=== PATIENT | male | born 1965 | race Caucasian/White ===

== ENCOUNTER 2017-03-21 13:11 | Inpatient (IN) | payer MEDICAID, OTHER ==
[~2017-03-21] VITALS: Ht 175.3 cm; Wt 78.2 kg
[~2017-03-21 13:11] MED LIST: ACET325T14 PO; AMLO2.5T2 PO; AMLO5TAB2 PO; ASPI-496 PO; ATEN25TA PO; ATEN50TA41 PO; CLON0.5T PO; CLOP75TA52 PO; ENAL2.5T PO; ENAL20TA PO; ENAL20TA68 PO; FLUO20SO PO; GABA300C10 PO; HYDR-3307 PO; HYDR12.53 PO; HYDR25TA6 PO; IBUP-1223 PO; ISOS30TA21 PO; ISOS30TA8 PO; LOPRESSOR PO; LORA-446 PO; METH500T97 PO; METO-99 PO; METO25TA35 PO; NITR0.4T28 SL; OLAN2.5T10 PO; OLAN5TAB9 PO; OMEP-110 PO; PANT40TA3 PO; PRAS10TA4 PO; SERT50TA5 PO; SIMV10TA3 PO; SIMV20TA3 PO; TAMS0.4C2 PO; TEMA15CA6 PO; TICA90TA PO
[2017-03-21] MEDS ORDERED: ONDANSETRON 2MG/ML, 2ML IVPush ONE (14:00)
[2017-03-21] MEDS ORDERED: SODIUM CHLORIDE FLUSH 10ML SYR IVF ONE (14:00)
[2017-03-21] MEDS ORDERED: LORazepam 2 MG/ML, 1ML IVPush ONE (14:00)
[2017-03-21] MEDS ORDERED: ASPIRIN 81 MG TABLET CHEW PO ONE (14:00)
[2017-03-21] MEDS ORDERED: MORPHINE SULFATE 4 MG/ML, 1ML IVPush ONE (14:00)
[2017-03-21] MEDS ORDERED: LABETALOL 5MG/ML, 20ML IVPush ONE (14:00)
[2017-03-21] MEDS ORDERED: NITROGLYCERIN SINGLE TAB 0.4 MG SL ONE (14:05)
[2017-03-21] MEDS ORDERED: morphine SULFATE 10 MG/ML, 1ML ONE (14:06)
[2017-03-21] MEDS ORDERED: ONDANSETRON 2MG/ML, 2ML ONE (14:06)
[2017-03-21] MEDS: NITROGLYCERIN SINGLE TAB 0.4 MG SL PRN ×3 (14:15→14:25)
[2017-03-21 14:21] LABS: ASPARTATE AMINO TRANSFERASE 53 U/L (15-37); BLOOD UREA NITROGEN 19 mg/dL (7-18)
[2017-03-21 14:22] LABS: HEMATOCRIT 46.4 % (39.2-51.8); HEMOGLOBIN 15.8 g/dL (13.7-18.0); WHITE BLOOD COUNT 6.1 x10^3/uL (3.4-10)
[2017-03-21] MEDS ORDERED: LABETALOL 5MG/ML, 20ML ONE (14:23)
[2017-03-21 14:29] LABS: IS PT STATUS REG ER OR PRE ER? YES
[2017-03-21 14:31] LABS: DAU SCREEN DISCLAIMER
[2017-03-21] MEDS ORDERED: LORazepam 2 MG/ML, 1ML ONE (15:24)
[2017-03-21] MEDS ORDERED: ONDANSETRON 2MG/ML, 2ML IVPush PRN (16:00)
[2017-03-21] MEDS ORDERED: NITROGLYCERIN 0.4 MG BOTTLE (25 TABS) SL SCH (16:00)
[2017-03-21] MEDS ORDERED: TEMAZEPAM 15 MG CAPSULE PO PRN (16:00)
[2017-03-21] MEDS ORDERED: ACETAMINOPHEN 325 MG TABLET PO PRN (16:00)
[2017-03-21] MEDS ORDERED: ENOXAPARIN 40 MG/0.4 ML ONE (16:05)
[2017-03-21] MEDS ORDERED: ACETAMINOPHEN 325 MG TABLET ONE (16:12)
[2017-03-21] MEDS: ENOXAPARIN 40 MG/0.4 ML SQ SCH (16:14)
[2017-03-21] MEDS ORDERED: GADOBUTROL 7.5 MMOL/7.5 ML PFS ONE (16:56)
[2017-03-21] MEDS ORDERED: hydrALAzine 20 MG/ML, 1ML ONE (17:21)
[2017-03-21] MEDS: hydrALAzine 20 MG/ML, 1ML IVPush PRN (17:25)
[2017-03-21] MEDS: morphine SULFATE 10 MG/ML, 1ML IVPush PRN (18:38)
[2017-03-21 19:12] VITALS: BP 156/108
[2017-03-21] MEDS: LORazepam 1MG TABLET PO PRN (20:08)
[2017-03-21] MEDS: OMEPRAZOLE 20 MG CAPSULE.DR PO SCH (20:09)
[2017-03-21] MEDS: ENALAPRIL 10 MG TABLET PO SCH (20:09)
[2017-03-21] MEDS: SIMVASTATIN 20 MG TABLET PO SCH (20:09)
[2017-03-21] MEDS: FLUOXETINE 20 MG CAPSULE PO SCH (20:09)
[2017-03-21] MEDS: OLANZAPINE 5 MG TABLET PO SCH (20:09)
[2017-03-21 22:36] LABS: IS PT STATUS REG ER OR PRE ER? NO
[2017-03-22 00:37] VITALS: BP 120/73
[2017-03-22 02:29] VITALS: BP 108/71
[2017-03-22 05:32] LABS: BLOOD UREA NITROGEN 29 mg/dL (7-18)
[2017-03-22 05:51] LABS: IS PT STATUS REG ER OR PRE ER? NO
[2017-03-22] MEDS ORDERED: REGADENOSON 0.4 MG/5 ML SYRINGE ONE (08:19)
[2017-03-22] MEDS ORDERED: METOPROLOL TARTRATE PO SCH (09:00)
[2017-03-22 10:25] VITALS: BP 127/71
[2017-03-22] MEDS: ISOSORBIDE MONONITRATE ER 30 MG TABLET PO SCH (11:24)
[2017-03-22] MEDS: METOPROLOL TARTRATE 100 MG TABLET PO SCH (11:24)
[2017-03-22] MEDS: ASPIRIN 81 MG TABLET EC PO SCH (11:24)
[2017-03-22] MEDS: ENALAPRIL 10 MG TABLET PO SCH ×2 (11:25→20:41)
[2017-03-22] MEDS: HYDROcodone/APAP 5/325 TABLET PO PRN ×2 (11:25→15:58)
[2017-03-22] MEDS: CLOPIDOGREL 75 MG TABLET PO SCH (11:25)
[2017-03-22] MEDS: LORazepam 1MG TABLET PO PRN ×2 (11:25→15:50)
[2017-03-22 13:00] VITALS: BP 152/79
[2017-03-22] MEDS ORDERED: POTASSIUM CHLORIDE 20 MEQ TAB.ER.PRT PO ONE (13:00)
[2017-03-22] MEDS: OMEPRAZOLE 20 MG CAPSULE.DR PO SCH ×3 (15:50→20:42)
[2017-03-22] MEDS: ENOXAPARIN 40 MG/0.4 ML SQ SCH (15:50)
[2017-03-22 19:09] VITALS: BP 128/84
[2017-03-22] MEDS ORDERED: HALOPERIDOL 5 MG/ML IM PRN (19:30)
[2017-03-22] MEDS ORDERED: LORazepam 2 MG/ML, 1ML IVPush PRN (19:30)
[2017-03-22] MEDS: FLUOXETINE 20 MG CAPSULE PO SCH (20:41)
[2017-03-22] MEDS: FOLIC ACID 1 MG TABLET PO SCH (20:42)
[2017-03-22] MEDS: SIMVASTATIN 20 MG TABLET PO SCH (20:42)
[2017-03-22] MEDS: OLANZAPINE 5 MG TABLET PO SCH (20:43)
[2017-03-22] MEDS: morphine SULFATE 10 MG/ML, 1ML IVPush PRN (21:32)
[2017-03-23 03:10] VITALS: BP 130/78
[2017-03-23 07:30] VITALS: BP 168/108
[2017-03-23] MEDS: LORazepam 1MG TABLET PO PRN ×3 (07:46→16:50)
[2017-03-23] MEDS: FOLIC ACID 1 MG TABLET PO SCH (07:48)
[2017-03-23] MEDS: ISOSORBIDE MONONITRATE ER 30 MG TABLET PO SCH (07:48)
[2017-03-23] MEDS: ASPIRIN 81 MG TABLET EC PO SCH (07:49)
[2017-03-23] MEDS: METOPROLOL TARTRATE 100 MG TABLET PO SCH (07:49)
[2017-03-23] MEDS: THIAMINE 100MG TABLET PO SCH (07:49)
[2017-03-23] MEDS: CLOPIDOGREL 75 MG TABLET PO SCH (07:49)
[2017-03-23] MEDS: ENALAPRIL 10 MG TABLET PO SCH ×2 (07:49→19:53)
[2017-03-23] MEDS: OMEPRAZOLE 20 MG CAPSULE.DR PO SCH ×2 (07:50→16:50)
[2017-03-23] MEDS: HYDROcodone/APAP 5/325 TABLET PO PRN ×3 (10:23→21:11)
[2017-03-23 13:57] VITALS: BP 120/87
[2017-03-23 15:36] LABS: OCCBLD OBC PASS
[2017-03-23] MEDS ORDERED: POTASSIUM CHLORIDE 20 MEQ TAB.ER.PRT PO ONE (16:30)
[2017-03-23] MEDS: CHLORDIAZEPOXIDE 25 MG CAPSULE PO SCH ×2 (19:05→19:52)
[2017-03-23 19:30] VITALS: BP_SYST 150; BP_SYST 157; BP_DIAS 104; BP_DIAS 112
[2017-03-23] MEDS: OLANZAPINE 5 MG TABLET PO SCH (19:51)
[2017-03-23] MEDS: METOPROLOL TARTRATE 25 MG TABLET PO SCH (19:53)
[2017-03-23] MEDS: BACLOFEN 10 MG TABLET PO SCH (19:53)
[2017-03-23] MEDS: SIMVASTATIN 20 MG TABLET PO SCH (19:53)
[2017-03-23] MEDS: FLUOXETINE 20 MG CAPSULE PO SCH (19:53)
[2017-03-24 04:20] VITALS: BP 146/87
[2017-03-24 05:00] LABS: BLOOD UREA NITROGEN 35 mg/dL (7-18)
[2017-03-24] MEDS: CHLORDIAZEPOXIDE 25 MG CAPSULE PO SCH ×4 (06:14→20:20)
[2017-03-24] MEDS: LORazepam 1MG TABLET PO PRN ×2 (07:28→15:31)
[2017-03-24] MEDS: METOPROLOL TARTRATE 25 MG TABLET PO SCH ×2 (07:29→20:19)
[2017-03-24] MEDS: ASPIRIN 81 MG TABLET EC PO SCH (07:29)
[2017-03-24] MEDS: OMEPRAZOLE 20 MG CAPSULE.DR PO SCH ×2 (07:29→15:11)
[2017-03-24] MEDS: ISOSORBIDE MONONITRATE ER 30 MG TABLET PO SCH (07:29)
[2017-03-24] MEDS: BACLOFEN 10 MG TABLET PO SCH ×2 (07:29→20:20)
[2017-03-24] MEDS: FOLIC ACID 1 MG TABLET PO SCH (07:29)
[2017-03-24] MEDS: THIAMINE 100MG TABLET PO SCH (07:30)
[2017-03-24] MEDS: CLOPIDOGREL 75 MG TABLET PO SCH (07:30)
[2017-03-24] MEDS: ENALAPRIL 10 MG TABLET PO SCH ×2 (07:30→20:20)
[2017-03-24 08:00] VITALS: BP 130/74
[2017-03-24] MEDS: KETOROLAC 30 MG/1 ML IVPush SCH ×3 (09:32→20:19)
[2017-03-24] MEDS: HYDROcodone/APAP 5/325 TABLET PO PRN ×3 (12:00→22:15)
[2017-03-24] MEDS: VALPROATE SODIUM 500 MG in SODIUM CHLORIDE 0.9% 100 ML IV SCH ×2 (13:18→20:22)
[2017-03-24 14:15] VITALS: BP 129/87
[2017-03-24 19:48] VITALS: BP 130/86
[2017-03-24] MEDS: FLUOXETINE 20 MG CAPSULE PO SCH (20:20)
[2017-03-24] MEDS: OLANZAPINE 5 MG TABLET PO SCH (20:20)
[2017-03-24] MEDS: SIMVASTATIN 20 MG TABLET PO SCH (20:20)
[2017-03-25 01:51] VITALS: BP 132/88
[2017-03-25] MEDS: HYDROcodone/APAP 5/325 TABLET PO PRN ×2 (02:58→14:41)
[2017-03-25] MEDS: KETOROLAC 30 MG/1 ML IVPush SCH ×4 (02:58→20:54)
[2017-03-25] MEDS: CHLORDIAZEPOXIDE 25 MG CAPSULE PO SCH ×4 (05:11→22:43)
[2017-03-25 05:52] LABS: BLOOD UREA NITROGEN 42 mg/dL (7-18)
[2017-03-25 07:56] VITALS: BP 136/88
[2017-03-25] MEDS: ENALAPRIL 10 MG TABLET PO SCH ×2 (08:31→20:51)
[2017-03-25] MEDS: FOLIC ACID 1 MG TABLET PO SCH (08:31)
[2017-03-25] MEDS: THIAMINE 100MG TABLET PO SCH (08:31)
[2017-03-25] MEDS: BACLOFEN 10 MG TABLET PO SCH ×2 (08:31→20:51)
[2017-03-25] MEDS: ISOSORBIDE MONONITRATE ER 30 MG TABLET PO SCH (08:32)
[2017-03-25] MEDS: METOPROLOL TARTRATE 25 MG TABLET PO SCH ×2 (08:32→20:51)
[2017-03-25] MEDS: CLOPIDOGREL 75 MG TABLET PO SCH (08:32)
[2017-03-25] MEDS: OMEPRAZOLE 20 MG CAPSULE.DR PO SCH ×2 (08:32→16:43)
[2017-03-25] MEDS: ASPIRIN 81 MG TABLET EC PO SCH (08:33)
[2017-03-25] MEDS: VALPROATE SODIUM 500 MG in SODIUM CHLORIDE 0.9% 100 ML IV SCH ×2 (08:33→20:54)
[2017-03-25] MEDS: BUTALB/APAP/CAFFEINE 50MG/325MG/40MG PO PRN ×2 (11:28→20:50)
[2017-03-25 14:40] VITALS: BP 145/91
[2017-03-25 19:06] VITALS: BP 172/110
[2017-03-25 20:48] VITALS: BP 163/105
[2017-03-25] MEDS: OLANZAPINE 5 MG TABLET PO SCH (20:50)
[2017-03-25] MEDS: FLUOXETINE 20 MG CAPSULE PO SCH (20:50)
[2017-03-25] MEDS: SIMVASTATIN 20 MG TABLET PO SCH (20:50)
[2017-03-25 22:40] VITALS: BP_SYST 166; BP_SYST 180; BP_DIAS 113; BP_DIAS 98
[2017-03-26] MEDS: KETOROLAC 30 MG/1 ML IVPush SCH ×4 (02:47→21:52)
[2017-03-26 03:03] VITALS: BP 137/85
[2017-03-26] MEDS: BUTALB/APAP/CAFFEINE 50MG/325MG/40MG PO PRN ×4 (03:12→21:53)
[2017-03-26] MEDS: CHLORDIAZEPOXIDE 25 MG CAPSULE PO SCH ×4 (06:10→21:52)
[2017-03-26 08:26] VITALS: BP 175/115
[2017-03-26] MEDS: ASPIRIN 81 MG TABLET EC PO SCH (08:49)
[2017-03-26] MEDS: BACLOFEN 10 MG TABLET PO SCH ×2 (08:49→21:52)
[2017-03-26] MEDS: METOPROLOL TARTRATE 25 MG TABLET PO SCH ×2 (08:49→21:52)
[2017-03-26] MEDS: ISOSORBIDE MONONITRATE ER 30 MG TABLET PO SCH (08:50)
[2017-03-26] MEDS: OMEPRAZOLE 20 MG CAPSULE.DR PO SCH ×2 (08:50→16:36)
[2017-03-26] MEDS: ENALAPRIL 10 MG TABLET PO SCH ×2 (08:50→21:52)
[2017-03-26] MEDS: THIAMINE 100MG TABLET PO SCH (08:50)
[2017-03-26] MEDS: CLOPIDOGREL 75 MG TABLET PO SCH (08:50)
[2017-03-26] MEDS: FOLIC ACID 1 MG TABLET PO SCH (08:50)
[2017-03-26] MEDS: hydrALAzine 20 MG/ML, 1ML IVPush PRN (08:50)
[2017-03-26 10:00] VITALS: BP 156/98
[2017-03-26] MEDS: VALPROATE SODIUM 500 MG in SODIUM CHLORIDE 0.9% 100 ML IV SCH ×2 (11:06→21:55)
[2017-03-26 14:30] VITALS: BP 157/90
[2017-03-26] MEDS: DIPHENHYDRAMINE 50 MG/ML, 1ML IVPush SCH ×2 (14:50→21:54)
[2017-03-26 19:15] VITALS: BP 135/89
[2017-03-26] MEDS ORDERED: HALOPERIDOL 5 MG/ML IM PRN (20:30)
[2017-03-26] MEDS ORDERED: ONDANSETRON 2MG/ML, 2ML IVPush PRN (20:30)
[2017-03-26] MEDS ORDERED: ACETAMINOPHEN 325 MG TABLET PO PRN (20:30)
[2017-03-26] MEDS ORDERED: NITROGLYCERIN 0.4 MG BOTTLE (25 TABS) SL SCH (20:30)
[2017-03-26] MEDS: FLUOXETINE 20 MG CAPSULE PO SCH (21:52)
[2017-03-26] MEDS: SIMVASTATIN 20 MG TABLET PO SCH (21:53)
[2017-03-26] MEDS: OLANZAPINE 5 MG TABLET PO SCH (21:53)
[2017-03-26] MEDS: HYDROcodone/APAP 5/325 TABLET PO PRN (23:27)
[2017-03-27] MEDS: BUTALB/APAP/CAFFEINE 50MG/325MG/40MG PO PRN ×5 (01:57→22:09)
[2017-03-27 02:00] VITALS: BP 154/96
[2017-03-27] MEDS: DIPHENHYDRAMINE 50 MG/ML, 1ML IVPush SCH ×4 (03:30→20:28)
[2017-03-27] MEDS: KETOROLAC 30 MG/1 ML IVPush SCH ×4 (03:31→20:28)
[2017-03-27] MEDS: CHLORDIAZEPOXIDE 25 MG CAPSULE PO SCH ×4 (06:02→20:28)
[2017-03-27 06:15] VITALS: BP 157/103
[2017-03-27 09:45] VITALS: BP 148/88
[2017-03-27] MEDS: VALPROATE SODIUM 500 MG in SODIUM CHLORIDE 0.9% 100 ML IV SCH (09:48)
[2017-03-27] MEDS: THIAMINE 100MG TABLET PO SCH (09:51)
[2017-03-27] MEDS: ENALAPRIL 10 MG TABLET PO SCH ×2 (09:51→20:28)
[2017-03-27] MEDS: CLOPIDOGREL 75 MG TABLET PO SCH (09:51)
[2017-03-27] MEDS: BACLOFEN 10 MG TABLET PO SCH ×2 (09:51→20:27)
[2017-03-27] MEDS: FOLIC ACID 1 MG TABLET PO SCH (09:51)
[2017-03-27] MEDS: ASPIRIN 81 MG TABLET EC PO SCH (09:52)
[2017-03-27] MEDS: ISOSORBIDE MONONITRATE ER 30 MG TABLET PO SCH (09:52)
[2017-03-27] MEDS: OMEPRAZOLE 20 MG CAPSULE.DR PO SCH ×2 (09:52→17:22)
[2017-03-27] MEDS: METOPROLOL TARTRATE 25 MG TABLET PO SCH ×2 (09:52→20:28)
[2017-03-27 13:02] VITALS: BP 130/69
[2017-03-27 20:24] VITALS: BP 148/82
[2017-03-27] MEDS: OLANZAPINE 5 MG TABLET PO SCH (20:27)
[2017-03-27] MEDS: SIMVASTATIN 20 MG TABLET PO SCH (20:27)
[2017-03-27] MEDS: FLUOXETINE 20 MG CAPSULE PO SCH (20:28)
[2017-03-27] MEDS: TOPIRAMATE 25 MG TABLET PO SCH (20:28)
[2017-03-28] MEDS: KETOROLAC 30 MG/1 ML IVPush SCH ×2 (03:00→08:48)
[2017-03-28] MEDS: DIPHENHYDRAMINE 50 MG/ML, 1ML IVPush SCH ×2 (03:00→08:48)
[2017-03-28 03:30] VITALS: BP 115/72
[2017-03-28] MEDS: BUTALB/APAP/CAFFEINE 50MG/325MG/40MG PO PRN ×2 (03:39→09:51)
[2017-03-28] MEDS: CHLORDIAZEPOXIDE 25 MG CAPSULE PO SCH (06:00)
[2017-03-28] MEDS ORDERED: TOPI25TA32 PO (06:45)
[2017-03-28] MEDS ORDERED: THIA100T6 PO (06:45)
[2017-03-28] MEDS ORDERED: FOLI-17 PO (06:45)
[2017-03-28] MEDS ORDERED: BUTA-177 PO (06:45)
[2017-03-28] MEDS ORDERED: ISOS30TA8 PO (06:45)
[2017-03-28] MEDS: TOPIRAMATE 25 MG TABLET PO SCH (08:46)
[2017-03-28] MEDS: ENALAPRIL 10 MG TABLET PO SCH (08:46)
[2017-03-28] MEDS: THIAMINE 100MG TABLET PO SCH (08:46)
[2017-03-28] MEDS: OMEPRAZOLE 20 MG CAPSULE.DR PO SCH (08:47)
[2017-03-28] MEDS: CLOPIDOGREL 75 MG TABLET PO SCH (08:47)
[2017-03-28] MEDS: FOLIC ACID 1 MG TABLET PO SCH (08:47)
[2017-03-28] MEDS: METOPROLOL TARTRATE 25 MG TABLET PO SCH (08:47)
[2017-03-28] MEDS: BACLOFEN 10 MG TABLET PO SCH (08:47)
[2017-03-28] MEDS: ISOSORBIDE MONONITRATE ER 30 MG TABLET PO SCH (08:47)
[2017-03-28] MEDS: ASPIRIN 81 MG TABLET EC PO SCH (08:48)
[2017-03-28 08:50] VITALS: BP 157/96
== END 2017-03-28 11:09 | disposition home or self-care (01) | DRG 313 ==
LOC: ED 14:52 → SUATTDRO 15:24 → EDIP 15:56 → 5SO 17:43
PROVIDERS: ADMIT Internal Medicine; ATTEND Hospitalist
DX: R07.89 Other chest pain (principal); I25.119 Atherosclerotic heart disease of native coronary artery with unspecified angina pectoris; I11.9 Hypertensive heart disease without heart failure; E78.5 Hyperlipidemia, unspecified; F10.239 Alcohol dependence with withdrawal, unspecified; F31.9 Bipolar disorder, unspecified; F41.1 Generalized anxiety disorder; G43.901 Migraine, unspecified, not intractable, with status migrainosus; I25.2 Old myocardial infarction; N40.0 Benign prostatic hyperplasia without lower urinary tract symptoms; Z79.82 Long term (current) use of aspirin; Z82.49 Family history of ischemic heart disease and other diseases of the circulatory system; Z87.11 Personal history of peptic ulcer disease; Z87.442 Personal history of urinary calculi
CPT/HCPCS: 36415; 70450; 70553; 71010; 78452; 80048; 80053; 80307; 81001; 82272; 83735; 83880; 84100; 84439; 84443; 84484; 85025; 93005; 93017; 93970; 96372; 96374; 96375; A9585; J1650; J1885; J2405; J2785; J2930; A9502; C9898; G0479; J0360; J1200; J2060; J2270

== ENCOUNTER 2017-03-29 04:34 | Emergency (ER) | payer SELFPAY ==
[~2017-03-29] VITALS: Ht 172.7 cm; Wt 84.0 kg
[~2017-03-29 04:34] MED LIST changes: +BUTA-177 PO; +FOLI-17 PO; +THIA100T6 PO; +TOPI25TA32 PO
[2017-03-29] MEDS ORDERED: SODIUM CHLORIDE FLUSH 10ML SYR IVF ONE ×2 (05:30)
[2017-03-29] MEDS ORDERED: KETOROLAC 30 MG/1 ML IVPush ONE (05:30)
[2017-03-29] MEDS ORDERED: morphine SULFATE 10 MG/ML, 1ML IVPush PRN (05:30)
[2017-03-29] MEDS ORDERED: DIPHENHYDRAMINE 50 MG/ML, 1ML IVPush ONE (05:30)
[2017-03-29] MEDS ORDERED: ONDANSETRON 2MG/ML, 2ML IVPush ONE (05:30)
[2017-03-29] MEDS ORDERED: METOCLOPRAMIDE 5 MG/ML, 2ML IVPush ONE (05:30)
[2017-03-29] MEDS ORDERED: SODIUM CHLORIDE 0.9% 1,000ML IVBOLUS ONE (05:30)
[2017-03-29] MEDS ORDERED: KETOROLAC 30 MG/1 ML ONE (05:41)
[2017-03-29] MEDS ORDERED: DIPHENHYDRAMINE 50 MG/ML, 1ML ONE (05:41)
[2017-03-29] MEDS ORDERED: ONDANSETRON 2MG/ML, 2ML ONE (05:42)
[2017-03-29] MEDS ORDERED: METOCLOPRAMIDE 5 MG/ML, 2ML ONE (05:42)
[2017-03-29 06:09] LABS: HEMATOCRIT 37.7 % (39.2-51.8); WHITE BLOOD COUNT 6.6 x10^3/uL (3.4-10)
[2017-03-29 06:19] LABS: ASPARTATE AMINO TRANSFERASE 27 U/L (15-37); BLOOD UREA NITROGEN 35 mg/dL (7-18)
[2017-03-29 06:26] LABS: IS PT STATUS REG ER OR PRE ER? YES
[2017-03-29] MEDS ORDERED: VISIPAQUE 270 MG/ML, 50ML BOTTLE ONE (06:54)
[2017-03-29 07:05] VITALS: BP 137/96
== END 2017-03-29 07:51 | disposition home or self-care (01) ==
LOC: ED 06:05
DX: R07.89 Other chest pain (principal); I10 Essential (primary) hypertension
CPT/HCPCS: 36415; 71010; 71275; 80053; 83880; 84484; 85025; 85379; 85610; 85730; 93005; 96361; 96374; 96375; 99285; J1200; J1885; J2405; J2765; J7030; Q9966

== ENCOUNTER 2017-05-23 21:18 | Emergency (ER) | payer MEDICAID ==
[~2017-05-23] VITALS: Ht 172.7 cm; Wt 80.6 kg
[~2017-05-23 21:18] MED LIST changes: +FLUO20TA25 PO
[2017-05-23 22:22] LABS: HEMATOCRIT 38.7 % (39.2-51.8); HEMOGLOBIN 13.1 g/dL (13.7-18.0); WHITE BLOOD COUNT 4.9 x10^3/uL (3.4-10)
[2017-05-23] MEDS ORDERED: SODIUM CHLORIDE FLUSH 10ML SYR IVF ONE (22:30)
[2017-05-23] MEDS ORDERED: NITROGLYCERIN SINGLE TAB 0.4 MG SL PRN (22:30)
[2017-05-23 22:31] LABS: BLOOD UREA NITROGEN 21 mg/dL (7-18)
[2017-05-23 22:38] LABS: IS PT STATUS REG ER OR PRE ER? YES
[2017-05-23] MEDS ORDERED: NITROGLYCERIN SINGLE TAB 0.4 MG SL ONE (22:59)
[2017-05-24 01:02] LABS: PATH.CAST-FLAG NOT PRESENT; SPERM-FLAG NOT PRESENT; SRC-FLAG NOT PRESENT; XTAL-FLAG NOT PRESENT; YLC-FLAG NOT PRESENT
[2017-05-24] MEDS ORDERED: KETOROLAC 30 MG/1 ML IVPush ONE (01:30)
[2017-05-24 01:34] LABS: IS PT STATUS REG ER OR PRE ER? YES
[2017-05-24] MEDS ORDERED: KETOROLAC 30 MG/1 ML ONE (02:05)
[2017-05-24 02:12] VITALS: BP 169/99
== END 2017-05-24 02:19 | disposition home or self-care (01) ==
LOC: ED 05-24 02:13
DX: R07.2 Precordial pain (principal); I10 Essential (primary) hypertension; I25.10 Atherosclerotic heart disease of native coronary artery without angina pectoris; I25.2 Old myocardial infarction
CPT/HCPCS: 36415; 71010; 80048; 81001; 82040; 84484; 85025; 93005; 96374; 99285; J1885

== ENCOUNTER 2017-06-17 09:44 | Observation (INO) | payer MEDICAID ==
[~2017-06-17] VITALS: Ht 172.7 cm; Wt 74.4 kg
[~2017-06-17 09:44] MED LIST changes: +CARV3.1212 PO; +OXYC5TAB3 PO
[2017-06-17] MEDS ORDERED: SODIUM CHLORIDE FLUSH 10ML SYR IVF ONE (10:30)
[2017-06-17] MEDS ORDERED: ASPIRIN 81 MG TABLET CHEW PO ONE (10:30)
[2017-06-17 10:41] LABS: BASOPHILS # (AUTO) 0.09 x10^3/uL (0-0.1); BASOPHILS % (AUTO) 2 % (0-1); EOSINOPHILS % (AUTO) 2 % (1-7); LYMPHOCYTES # (AUTO) 0.95 x10^3/uL (1-3.4); LYMPHOCYTES % (AUTO) 20 % (22-44); MD NO; MEAN CORPUSCULAR HEMOGLOBIN 30.8 pg (27.5-34.5); MEAN CORPUSCULAR HGB CONC 34.1 g/dL (33.2-36.2); MEAN CORPUSCULAR VOLUME 90.5 fL (81-97); MEAN PLATELET VOLUME 7.7 fL (7.4-10.4); MONOCYTES # (AUTO) 0.66 x10^3/uL (0.2-0.8); MONOCYTES % (AUTO) 13 % (2-9); NEUTROPHILS # (AUTO) 3.08 x10^3/uL (1.8-6.8); NEUTROPHILS % (AUTO) 63 % (42-75); PLATELET COUNT 388 x10^3/uL (130-400); RED BLOOD COUNT 3.92 x10^6/uL (4.38-5.82); RED CELL DISTRIBUTION WIDTH 13.6 % (9.4-14.8)
[2017-06-17 10:46] LABS: ALBUMIN 3.2 g/dL (3.4-5.0); ANION GAP 8 mmol/L (5-15); CALCIUM 8.3 mg/dL (8.5-10.1); CHLORIDE 112 mmol/L (98-107); CREATININE 0.78 mg/dL (0.7-1.3)
[2017-06-17 10:50] LABS: TROPONIN I 0.019 ng/mL (0.000-0.045)
[2017-06-17] MEDS ORDERED: NITROGLYCERIN OINT 2%, 1GM TP ONE ×2 (11:37→12:00)
[2017-06-17] MEDS ORDERED: MORPHINE SULFATE 4 MG/ML, 1ML ONE (11:38)
[2017-06-17] MEDS ORDERED: morphine SULFATE 10 MG/ML, 1ML IVPush ONE (12:00)
[2017-06-17 15:09] VITALS: BP 155/100
[2017-06-17] MEDS ORDERED: ENALAPRILAT 1.25 MG/ML, 2ML IVPush PRN (15:30)
[2017-06-17] MEDS ORDERED: HYDROcodone/APAP 5/325 TABLET PO PRN (15:30)
[2017-06-17] MEDS ORDERED: ACETAMINOPHEN 325 MG TABLET PO PRN (15:30)
[2017-06-17] MEDS ORDERED: ONDANSETRON 2MG/ML, 2ML IVPush PRN (15:30)
[2017-06-17] MEDS ORDERED: OXYcodone IR 5MG TABLET PO PRN (15:30)
[2017-06-17] MEDS ORDERED: morphine SULFATE 10 MG/ML, 1ML IVPush PRN (15:30)
[2017-06-17] MEDS: CARVEDILOL 3.125 MG TABLET PO SCH (17:07)
[2017-06-17] MEDS: ENOXAPARIN 40 MG/0.4 ML SQ SCH (17:07)
[2017-06-17] MEDS ORDERED: NITROGLYCERIN 0.4 MG/SPRAY SL PRN (20:30)
[2017-06-17 20:31] VITALS: BP 150/91
[2017-06-17 20:52] VITALS: BP 144/83
[2017-06-17] MEDS: NITROGLYCERIN 0.4 MG BOTTLE (25 TABS) SL PRN ×3 (20:54→21:10)
[2017-06-17] MEDS ORDERED: OLANZAPINE 5 MG TABLET PO SCH (21:00)
[2017-06-17] MEDS ORDERED: SIMVASTATIN 20 MG TABLET PO SCH (21:00)
[2017-06-17 21:03] VITALS: BP 129/82
[2017-06-17 21:09] VITALS: BP 134/69
[2017-06-17 21:09] LABS: TROPONIN I 0.022 ng/mL (0.000-0.045)
[2017-06-17 21:14] VITALS: BP 136/71
[2017-06-17] MEDS: TOPIRAMATE 25 MG TABLET PO SCH (22:12)
[2017-06-17] MEDS: ENALAPRIL 10 MG TABLET PO SCH (22:12)
[2017-06-18 03:01] VITALS: BP 93/60
[2017-06-18 04:51] LABS: TROPONIN I 0.025 ng/mL (0.000-0.045)
[2017-06-18 06:30] LABS: AMPHETAMINE SCREEN, URINE Negative (Negative); BARBITURATE SCREEN, URINE Negative (Negative); BENZODIAZEPINE SCREEN, URINE Positive (Negative); CANNABINOID SCREEN, URINE Negative (Negative); COCAINE SCREEN, URINE Negative (Negative); METHADONE SCREEN, URINE Negative (Negative); OPIATE SCREEN, URINE Positive (Negative)
[2017-06-18] MEDS ORDERED: PANTOPROZOLE 40MG TABLET PO SCH (07:30)
[2017-06-18] MEDS ORDERED: OMEPRAZOLE 20 MG CAPSULE.DR PO SCH (07:30)
[2017-06-18 07:44] VITALS: BP 113/71
[2017-06-18] MEDS ORDERED: ASPIRIN 81 MG TABLET EC PO SCH (09:00)
[2017-06-18] MEDS ORDERED: CLOPIDOGREL 75 MG TABLET PO SCH (09:00)
[2017-06-18] MEDS: CARVEDILOL 3.125 MG TABLET PO SCH ×2 (09:00→09:01)
[2017-06-18] MEDS ORDERED: THIAMINE 100MG TABLET PO SCH (09:00)
[2017-06-18] MEDS ORDERED: TAMSULOSIN 0.4 MG CAP.ER.24H PO SCH (09:00)
[2017-06-18] MEDS ORDERED: ISOSORBIDE MONONITRATE ER 30 MG TABLET PO SCH (09:00)
[2017-06-18] MEDS ORDERED: FLUOXETINE 20 MG CAPSULE PO SCH (09:00)
[2017-06-18] MEDS ORDERED: FOLIC ACID 1 MG TABLET PO SCH (09:00)
[2017-06-18] MEDS: ENALAPRIL 10 MG TABLET PO SCH (09:01)
[2017-06-18] MEDS: TOPIRAMATE 25 MG TABLET PO SCH (09:02)
[2017-06-18 13:25] VITALS: BP 115/65
[2017-06-18] MEDS ORDERED: TAMS-11 PO (15:15)
[2017-06-18] MEDS ORDERED: SUCR1TAB33 PO (15:21)
[2017-06-18] MEDS ORDERED: OMEP-110 PO (15:21)
[2017-06-18] MEDS: ENOXAPARIN 40 MG/0.4 ML SQ SCH (15:30)
== END 2017-06-18 16:30 | disposition home or self-care (01) ==
LOC: ED 11:12 → INTOOBSV 13:19 → EDIP 13:19 → 5SO 16:02
PROVIDERS: ADMIT Hospitalist; ATTEND Internal Medicine
DX: R07.2 Precordial pain (principal); I25.10 Atherosclerotic heart disease of native coronary artery without angina pectoris; I10 Essential (primary) hypertension; K21.9 Gastro-esophageal reflux disease without esophagitis; E78.5 Hyperlipidemia, unspecified; F41.1 Generalized anxiety disorder; F12.90 Cannabis use, unspecified, uncomplicated; I25.2 Old myocardial infarction; Z80.1 Family history of malignant neoplasm of trachea, bronchus and lung; Z82.49 Family history of ischemic heart disease and other diseases of the circulatory system; Z87.442 Personal history of urinary calculi; Z87.891 Personal history of nicotine dependence; Z91.14 Patient's other noncompliance with medication regimen; Z95.5 Presence of coronary angioplasty implant and graft
CPT/HCPCS: 36415; 71045; 80048; 80307; 82040; 83880; 84484; 85025; 93005; 96372; 96374; 96376; 99285; G0378; J1650; J2270

== ENCOUNTER 2017-07-21 08:19 | Inpatient (IN) | payer MEDICAID ==
[~2017-07-21] VITALS: Ht 172.7 cm; Wt 102.2 kg
[~2017-07-21 08:19] MED LIST changes: +SUCR1TAB33 PO; +TAMS-11 PO
[2017-07-21] MEDS ORDERED: NITROGLYCERIN SINGLE TAB 0.4 MG SL ONE ×2 (08:51→10:03)
[2017-07-21] MEDS: NITROGLYCERIN SINGLE TAB 0.4 MG SL PRN ×2 (08:52→10:04)
[2017-07-21 09:06] LABS: BASOPHILS # (AUTO) 0.06 x10^3/uL (0-0.1); BASOPHILS % (AUTO) 1 % (0-1); EOSINOPHILS # (AUTO) 0.18 x10^3/uL (0-0.4); EOSINOPHILS % (AUTO) 3 % (1-7); LYMPHOCYTES # (AUTO) 1.21 x10^3/uL (1-3.4); LYMPHOCYTES % (AUTO) 20 % (22-44); MD NO; MEAN CORPUSCULAR HEMOGLOBIN 30.7 pg (27.5-34.5); MEAN CORPUSCULAR HGB CONC 34.4 g/dL (33.2-36.2); MEAN CORPUSCULAR VOLUME 89.3 fL (81-97); MEAN PLATELET VOLUME 7.6 fL (7.4-10.4); MONOCYTES # (AUTO) 0.38 x10^3/uL (0.2-0.8); MONOCYTES % (AUTO) 6 % (2-9); NEUTROPHILS # (AUTO) 4.34 x10^3/uL (1.8-6.8); NEUTROPHILS % (AUTO) 70 % (42-75); PLATELET COUNT 422 x10^3/uL (130-400); RED BLOOD COUNT 4.53 x10^6/uL (4.38-5.82); RED CELL DISTRIBUTION WIDTH 14.5 % (9.4-14.8)
[2017-07-21 09:14] LABS: INTERNATIONAL NORMALIZED RATIO 0.96 (0.93-1.1); PROTHROMBIN TIME 9.9 Seconds (9.6-11.5)
[2017-07-21 09:20] LABS: ALBUMIN 3.7 g/dL (3.4-5.0); ANION GAP 8 mmol/L (5-15); CALCIUM 8.7 mg/dL (8.5-10.1); CHLORIDE 109 mmol/L (98-107)
[2017-07-21 09:23] LABS: TROPONIN I < 0.015 ng/mL (0.000-0.045)
[2017-07-21 10:17] LABS: MICROSCOPIC AUTO
[2017-07-21 10:20] LABS: CULTURE INDICATED? NO
[2017-07-21] MEDS ORDERED: METOPROLOL 1 MG/ML, 5ML IVPush ONE (10:38)
[2017-07-21] MEDS ORDERED: SODIUM CHLORIDE 0.9% 1,000 ML IV SCH ×2 (10:39→11:57)
[2017-07-21] MEDS ORDERED: CARVEDILOL 6.25 MG TABLET PO SCH (11:00)
[2017-07-21 11:07] VITALS: BP_SYST 184; BP_SYST 185; BP_DIAS 111; BP_DIAS 119
[2017-07-21] MEDS ORDERED: OXYcodone IR 5MG TABLET PO PRN (12:00)
[2017-07-21] MEDS ORDERED: morphine SULFATE 10 MG/ML, 1ML IVPush PRN (12:00)
[2017-07-21] MEDS ORDERED: POLYETHYLENE GLYCOL 17 GM PACKET PO PRN (12:00)
[2017-07-21] MEDS ORDERED: ACETAMINOPHEN 325 MG TABLET PO PRN (12:00)
[2017-07-21] MEDS ORDERED: ENALAPRILAT 1.25 MG/ML, 2ML IVPush PRN (12:00)
[2017-07-21] MEDS ORDERED: BISACODYL 10 MG SUPP PR PRN (12:00)
[2017-07-21] MEDS ORDERED: ONDANSETRON 2MG/ML, 2ML IVPush PRN (12:00)
[2017-07-21] MEDS ORDERED: NITROGLYCERIN 0.4 MG BOTTLE (25 TABS) SL PRN (12:30)
[2017-07-21] MEDS ORDERED: VERAPAMIL 2.5 MG/ML, 2ML ONE ×2 (13:05→13:42)
[2017-07-21] MEDS ORDERED: FENTANYL PF 100 MCG/2ML ONE ×2 (13:05→14:00)
[2017-07-21] MEDS ORDERED: HEPARIN 1,000 UNITS/ML, 10ML ONE (13:05)
[2017-07-21] MEDS ORDERED: LIDOCAINE 2%, 20ML ONE (13:05)
[2017-07-21] MEDS ORDERED: MIDAZOLAM 1 MG/ML, 2ML ONE ×2 (13:05→14:00)
[2017-07-21] MEDS: ASPIRIN 81 MG TABLET EC PO SCH (13:29)
[2017-07-21] MEDS: CLOPIDOGREL 75 MG TABLET PO SCH (13:30)
[2017-07-21] MEDS: HEPARIN 5,000 UNITS/ML, 1ML SQ SCH ×2 (13:31→21:05)
[2017-07-21] MEDS ORDERED: DIPHENHYDRAMINE 50 MG/ML, 1ML ONE (14:00)
[2017-07-21] MEDS: SUCRALFATE 1 GM TABLET PO SCH ×2 (15:03→21:05)
[2017-07-21] MEDS: hydrALAzine 20 MG/ML, 1ML IVPush PRN (15:04)
[2017-07-21 15:12] VITALS: BP 180/116
[2017-07-21 15:26] LABS: FREE T4 (FREE THYROXINE) 1.07 ng/dL (0.76-1.46); THYROID STIMULATING HORMONE 1.46 mIU/L (0.358-3.740)
[2017-07-21 15:42] LABS: TROPONIN I < 0.015 ng/mL (0.000-0.045)
[2017-07-21 15:58] LABS: HEMOGLOBIN A1C 5.2 % (4.2-6.3)
[2017-07-21] MEDS: CARVEDILOL 3.125 MG TABLET PO SCH (17:22)
[2017-07-21] MEDS: OXYcodone IR 5MG TABLET PO PRN (17:22)
[2017-07-21 17:28] VITALS: BP 146/90
[2017-07-21 18:38] VITALS: BP 148/93
[2017-07-21] MEDS ORDERED: ENALAPRIL 10 MG TABLET PO SCH (21:00)
[2017-07-21] MEDS ORDERED: SIMVASTATIN 20 MG TABLET PO SCH (21:00)
[2017-07-21] MEDS ORDERED: OLANZAPINE 5 MG TABLET PO SCH (21:00)
[2017-07-21] MEDS ORDERED: ENALAPRIL 5MG TABLET ONE (21:01)
[2017-07-21] MEDS: TOPIRAMATE 25 MG TABLET PO SCH (21:05)
[2017-07-21 21:11] LABS: TROPONIN I 0.027 ng/mL (0.000-0.045)
[2017-07-22] MEDS: OXYcodone IR 5MG TABLET PO PRN ×2 (01:52→09:34)
[2017-07-22 01:56] VITALS: BP 163/117
[2017-07-22] MEDS: hydrALAzine 20 MG/ML, 1ML IVPush PRN (01:59)
[2017-07-22 03:30] VITALS: BP 153/92
[2017-07-22 05:34] LABS: BASOPHILS # (AUTO) 0.07 x10^3/uL (0-0.1); BASOPHILS % (AUTO) 1 % (0-1); EOSINOPHILS # (AUTO) 0.29 x10^3/uL (0-0.4); EOSINOPHILS % (AUTO) 4 % (1-7); LYMPHOCYTES # (AUTO) 1.89 x10^3/uL (1-3.4); LYMPHOCYTES % (AUTO) 26 % (22-44); MD NO; MEAN CORPUSCULAR HEMOGLOBIN 30.9 pg (27.5-34.5); MEAN CORPUSCULAR HGB CONC 34.4 g/dL (33.2-36.2); MEAN CORPUSCULAR VOLUME 89.9 fL (81-97); MEAN PLATELET VOLUME 7.7 fL (7.4-10.4); MONOCYTES # (AUTO) 0.66 x10^3/uL (0.2-0.8); MONOCYTES % (AUTO) 9 % (2-9); NEUTROPHILS # (AUTO) 4.24 x10^3/uL (1.8-6.8); NEUTROPHILS % (AUTO) 59 % (42-75); PLATELET COUNT 427 x10^3/uL (130-400); RED CELL DISTRIBUTION WIDTH 14.6 % (9.4-14.8)
[2017-07-22 05:41] LABS: ALANINE AMINOTRANSFERASE 97 U/L (12-78); ALBUMIN 3.5 g/dL (3.4-5.0); ANION GAP 10 mmol/L (5-15); CALCIUM 8.6 mg/dL (8.5-10.1); CHLORIDE 110 mmol/L (98-107); CHOLESTEROL, TOTAL 212 mg/dL (140-239); CREATININE 1.15 mg/dL (0.7-1.3)
[2017-07-22 05:43] LABS: ALKALINE PHOSPHATASE 103 U/L (45-117); BILIRUBIN,TOTAL 0.2 mg/dL (0.2-1.0); CHOL/HDL RATIO 3.9; HDL CHOL % 25 % (26-37); HDL CHOLESTEROL (DIRECT) 54 mg/dL (40-60); LDL CHOLESTEROL,CALCULATED 124 mg/dL (54-169); LDL/HDL RATIO 2.3 (0.5-3.0); TOTAL PROTEIN 7.2 g/dL (6.4-8.2); TRIGLYCERIDES 170 mg/dL (50-200); VLDL CHOLESTEROL 34 mg/dL (0-25)
[2017-07-22] MEDS: CARVEDILOL 3.125 MG TABLET PO SCH (05:47)
[2017-07-22] MEDS: HEPARIN 5,000 UNITS/ML, 1ML SQ SCH (05:47)
[2017-07-22] MEDS ORDERED: OMEPRAZOLE 20 MG CAPSULE.DR PO SCH (07:30)
[2017-07-22 08:44] VITALS: BP 150/104
[2017-07-22] MEDS ORDERED: FLUOXETINE HCL 20 MG CAPSULE PO SCH (09:00)
[2017-07-22] MEDS ORDERED: FOLIC ACID 1 MG TABLET PO SCH (09:00)
[2017-07-22] MEDS ORDERED: THIAMINE 100MG TABLET PO SCH (09:00)
[2017-07-22] MEDS ORDERED: ISOSORBIDE MONONITRATE ER 60 MG TABLET PO SCH (09:00)
[2017-07-22] MEDS ORDERED: ISOSORBIDE MONONITRATE ER 30 MG TABLET PO SCH (09:00)
[2017-07-22] MEDS ORDERED: TAMSULOSIN 0.4 MG CAP.ER.24H PO SCH (09:00)
[2017-07-22] MEDS ORDERED: SENNA/DOCUSATE TABLET PO SCH (09:00)
[2017-07-22] MEDS: CLOPIDOGREL 75 MG TABLET PO SCH (09:26)
[2017-07-22] MEDS: ENALAPRIL 20MG TABLET PO SCH ×2 (09:26→09:33)
[2017-07-22] MEDS: SUCRALFATE 1 GM TABLET PO SCH (09:27)
[2017-07-22] MEDS: ASPIRIN 81 MG TABLET EC PO SCH (09:27)
[2017-07-22] MEDS: TOPIRAMATE 25 MG TABLET PO SCH (09:27)
[2017-07-22] MEDS ORDERED: ISOS60TA36 PO (10:59)
[2017-07-22] MEDS ORDERED: SIMV40TA3 PO (10:59)
[2017-07-22] MEDS ORDERED: ENAL20TA PO (10:59)
[2017-07-22] MEDS ORDERED: CARV6.2512 PO (10:59)
[2017-07-22] MEDS ORDERED: GABA-826 PO (11:08)
[2017-07-22] MEDS ORDERED: CARVEDILOL 6.25 MG TABLET PO SCH (18:00)
[2017-07-22] MEDS ORDERED: SIMVASTATIN 40 MG TABLET PO SCH (21:00)
== END 2017-07-22 14:25 | disposition home or self-care (01) | DRG 287 ==
LOC: ED 08:41 → EDIP 09:58 → 5SO 10:58 → DCLOUNGE 07-22 14:00
PROVIDERS: ADMIT Internal Medicine; ATTEND Internal Medicine
PROC: 4A023N7 Measurement of Cardiac Sampling and Pressure, Left Heart, Percutaneous Approach (ICD-10-PCS; principal; 2017-07-21)
PROC: B2111ZZ Fluoroscopy of Multiple Coronary Arteries using Low Osmolar Contrast (ICD-10-PCS; 2017-07-21)
PROC: B2151ZZ Fluoroscopy of Left Heart using Low Osmolar Contrast (ICD-10-PCS; 2017-07-21)
DX: I25.10 Atherosclerotic heart disease of native coronary artery without angina pectoris (principal); E78.5 Hyperlipidemia, unspecified; R07.9 Chest pain, unspecified; F10.20 Alcohol dependence, uncomplicated; F12.90 Cannabis use, unspecified, uncomplicated; F17.200 Nicotine dependence, unspecified, uncomplicated; F29 Unspecified psychosis not due to a substance or known physiological condition; F32.9 Major depressive disorder, single episode, unspecified; I10 Essential (primary) hypertension; N40.0 Benign prostatic hyperplasia without lower urinary tract symptoms; Z80.1 Family history of malignant neoplasm of trachea, bronchus and lung; Z82.49 Family history of ischemic heart disease and other diseases of the circulatory system; Z87.442 Personal history of urinary calculi; Z95.5 Presence of coronary angioplasty implant and graft
CPT/HCPCS: 36415; 71045; 74176; 80048; 80053; 80061; 81001; 82040; 83036; 83735; 84439; 84443; 84484; 85025; 85610; 85730; 93005; 93458; 99156; 99285; C1760; C1894; J1644; J2250; J3010; J3490; J0360; J1200; J7030; Q9967